=== PATIENT | male | born 1950 | race Caucasian/White ===

== ENCOUNTER 2018-12-11 12:29 | Observation (INO) ==
[2018-12-11] MEDS ORDERED: Aspirin 81 MG TAB.CHEW PO ONE (13:01)
[2018-12-11 13:09] LABS: Basophils # 0.1 K/mcL (0.0-0.2); Basophils % 0.5 %; Eosinophils # 0.1 K/mcL (0.0-0.6); Hematocrit 41.3 % (37.5-50.1); Hemoglobin 13.5 g/dL (12.9-16.9); Immature Granulocytes % 0.5 % (0-4); Lymphocytes # 2.9 K/mcL (0.6-4.6); Lymphocytes % 26.1 %; Mean Corpuscular HGB Conc 32.7 g/dL (31.6-35.5); Mean Corpuscular Hemoglobin 28.7 pg (28.0-33.3); Mean Corpuscular Volume 87.7 fL (83.0-100.0); Mean Platelet Volume 9.1 fL (9.4-12.4); Monocytes # 1.2 K/mcL (0.0-1.3); Monocytes % 10.9 %; Neutrophils # 6.7 K/mcL (1.6-8.9); Platelet Count 325 K/mcL (140-400); Red Blood Count 4.71 M/mcL (4.19-5.50); Red Cell Distribution Width 13.1 % (11.5-14.5)
[2018-12-11 13:21] LABS: BUN/Creatinine Ratio 17 (6-26); Blood Urea Nitrogen 15 mg/dL (8-23); Calcium 9.2 mg/dL (8.6-10.3); Carbon Dioxide 26 mEq/L (23-29); Chloride 106 mEq/L (98-107); Glucose 95 mg/dL (70-105); Osmolality,Calculated 287 (280-300); Potassium 3.7 mEq/L (3.5-5.1); Sodium 138 mEq/L (136-145); Troponin I < 0.03 ng/mL (< 0.04); eGFR For African Americans > 60 (> 60); eGFR For Non-African Americans > 60 (> 60)
[2018-12-11] MEDS: Nitroglycerin 0.4 MG TAB.SUBL SL PRN ×2 (13:29→13:37)
--- NOTE | 2018-12-11 13:53 | Emergency Department Note ---
Disposition Clinical Impression: Chest pain Qualifiers: Chest pain type: precordial pain Qualified Code(s): R07.2 - Precordial pain Disposition: Admitted As Inpatient Condition: Good Time of Disposition: 14:07 Chest Pain HPI - General Chief Complaint: ED Chest Pain Stated Complaint: CP Time Seen by Provider: 12/11/18 12:44 Source: patient Limitations: no limitations Vital Signs Reviewed: Yes Nursing Notes Reviewed: Yes - History of Present Illness HPI Narrative: This is a 68-year-old gentleman with a history of coronary artery disease who presents today with a complaint of substernal chest pain deficit at this morning. Patient describes tightness, radiating to his left arm and jaw. Patient says he has had intermittent pain for the past few days also. Associated symptoms include dyspnea. He denies any fever or chills. He denies any URI symptoms. Denies any recent trauma. His last stress test was many years ago. Symptoms seem to be worse with exertion. Pt complaint: chest pain Duration: intermittent Pain Location: left chest Severity: moderate Severity scale (1-10): 7 Quality: tightness, heaviness Pain Radiation: LUE Worsens with: exertion - Related Data Home Medications Medication Instructions Recorded Confirmed Albuterol Sulfate [Proventil 180 mcg IH Q4HR PRN 06/21/15 12/11/18 Inhaler] Aspirin 81 mg PO DAILY 06/21/15 12/11/18 Atorvastatin Calcium [Lipitor] 80 mg PO HS 06/21/15 12/11/18 Clopidogrel [Plavix] 75 mg PO DAILY 06/21/15 12/11/18 Gabapentin [Neurontin] 400 mg PO BID 06/21/15 12/11/18 Isosorbide MONOnitrate [Isosorbide 60 mg PO DAILY 06/21/15 12/11/18 Mononitrate ER] Metoprolol [Lopressor] 25 mg PO BID 06/21/15 12/11/18 Nitroglycerin [Nitrostat] 0.4 mg SL Q5M PRN 06/21/15 12/11/18 Pantoprazole Sodium [Protonix] 40 mg PO DAILY 06/21/15 12/11/18 Ranitidine HCl [Zantac] 300 mg PO BID 06/21/15 12/11/18 Previous Rx's Medication Instructions Recorded Acetaminophen [Tylenol] 500 mg PO Q6HR PRN #20 tablet 04/25/18 Cetirizine HCl [Zyrtec] 10 mg PO DAILY #4 capsule 06/23/18 Allergies Allergy/AdvReac Type Severity Reaction Status Date / Time No Known Allergies Allergy Verified 06/23/18 09:28 All systems ED: reviewed and negative except as stated. Constitutional: Denies: fever, chills ENT ED: Denies: congestion Cardiovascular: Reports: chest pain. Denies: palpitations, dyspnea on exertion, syncope Respiratory: Reports: dyspnea Gastrointestinal: Denies: abdominal pain, vomiting Musculoskeletal: Denies: back pain, neck pain Chest Pain PMH - Past Medical History Medical history: Reports: coronary artery disease, hyperlipidemia, hypertension, seizures, TIA Surgical history: Reports: angioplasty/stent, cholecystectomy Psychiatric history: Reports: no psych history - Social History Smoking Status: Never smoker Alcohol use: Reports: none Drug use: Reports: none Physical Exam - General Limitations: no limitations General appearance: alert - Head Head exam: atraumatic, normocephalic, normal inspection - Eye Eye exam: Present: normal appearance, PERRL, EOMI - Expanded Eye Exam Pupils: Left: reactive - ENT ENT exam: normal exam, normal oropharynx, mucous membranes moist - Expanded ENT Exam External ear exam: Present: normal external inspection Mouth exam: Present: normal external inspection Teeth exam: Present: normal inspection Throat exam: Present: normal inspection - Neck Neck exam: Present: normal inspection, full ROM, trachea midline - Chest Chest inspection: Present: normal inspection, symmetric chest wall rise - Respiratory Respiratory exam: Present: normal lung sounds bilaterally - Cardiovascular Cardiovascular exam: Present: regular rate, normal rhythm, normal heart sounds - Abdominal Exam Abdominal exam: Present: soft, Non-Tender. Absent: tenderness, distention, guarding, rebound, rigidity - Extremities Exam Extremities exam: Present: normal inspection, full ROM. Absent: tenderness, pedal edema - Expanded Upper Extremity Exam Shoulder exam: Present: normal inspection, full ROM Arm exam: Present: normal inspection, full ROM Elbow exam: Present: normal inspection, full ROM Forearm/Wrist exam: Present: normal inspection, full ROM Hand exam: Present: normal inspection, full ROM Vascular exam: Normal: capillary refill, radial pulse - Expanded Lower Extremity Exam Hip/Pelvis exam: Present: normal inspection, full ROM Upper leg exam: Present: normal inspection, full ROM Knee exam: Present: normal inspection, full ROM Lower leg exam: Present: normal inspection, full ROM Ankle exam: Present: normal inspection, full ROM Foot/toe exam: Present: normal inspection, full ROM Neurovascular/Tendon exam: Absent: motor deficit, sensory deficit, tendon deficit - Back Exam Back exam: Present: normal inspection, full ROM. Absent: tenderness - Neurological Exam Neurological exam: Present: alert, oriented X3 - Expanded Neurological Exam Patient oriented to: Present: person, place, time Coma Scale Eye Opening: Spontaneous Coma Scale Motor Response: Obeys Commands Coma Scale Verbal Response: Oriented Coma Scale Total: 15 - Psychiatric Psychiatric exam: Present: normal affect, normal mood - Skin Skin exam: Present: warm, dry, intact, normal color Course Vital Signs Temperature 97.9 F 12/11/18 12:36 Pulse Rate 79 12/11/18 12:36 Respiratory Rate 12/11/18 12:36 Blood Pressure 141/78 12/11/18 12:36 O2 Sat by Pulse Oximetry 100 12/11/18 12:36 Temperature 97.9 F 12/11/18 12:36 Pulse Rate 62 12/11/18 14:35 Respiratory Rate 12/11/18 14:35 Blood Pressure 123/74 12/11/18 14:35 O2 Sat by Pulse Oximetry 100 12/11/18 14:35 Oxygen Delivery Oxygen Delivery Room Air Chest Pain - MDM Narrative Medical decision making narrative: Differential diagnoses includes acute coronary syndrome versus atypical chest pain. Given this was scheduled risk factor, I will rule out ACS. EKG shows normal sinus rhythm at 80 beats per minute. Normal axis. Normal intervals. No acute injury pattern. 1355 Patient reevaluated. His pain is almost completely resolved with nitroglycerin. Will put NTG paste. 1406 Patient's care discussed with the hospitalist. Will admit. - Lab Data Result diagrams: 12/11/18 12:41 12/11/18 12:41 Lab Results 12/11/18 12/11/18 Range/Units 12:41 12:41 WBC 11.0 (4.3-11.1) K/mcL RBC 4.71 (4.19-5.50) M/mcL Hgb 13.5 (12.9-16.9) g/dL Hct 41.3 (37.5-50.1) % MCV 87.7 (83.0-100.0) fL MCH 28.7 (28.0-33.3) pg MCHC 32.7 (31.6-35.5) g/dL RDW 13.1 (11.5-14.5) % Plt Count 325 (140-400) K/mcL MPV 9.1 L (9.4-12.4) fL Immature Gran % 0.5 (0-4) % Seg Neutrophils % 61.0 % Lymphocytes % 26.1 % Monocytes % 10.9 % Eosinophils % 1.0 % Basophils % 0.5 % Neutrophils # 6.7 (1.6-8.9) K/mcL Lymphocytes # 2.9 (0.6-4.6) K/mcL Monocytes # 1.2 (0.0-1.3) K/mcL Eosinophils # 0.1 (0.0-0.6) K/mcL Basophils # 0.1 (0.0-0.2) K/mcL Sodium 138 (136-145) mEq/L Potassium 3.7 (3.5-5.1) mEq/L Chloride 106 (98-107) mEq/L Carbon Dioxide 26 (23-29) mEq/L BUN 15 (8-23) mg/dL Creatinine 0.87 (0.70-1.30) mg/dL Est GFR ( Amer) > 60 (> 60) Est GFR (Non-Af Amer) > 60 (> 60) BUN/Creatinine Ratio 17 (6-26) Glucose 95 (70-105) mg/dL Calculated Osmolality 287 (280-300) Calcium 9.2 (8.6-10.3) mg/dL Troponin I < 0.03 (< 0.04) ng/mL Heart Score - Score History: Moderately Suspicious EKG: Non Specific repolarisation Disturbance Age: Greater than 65 Risk Factors: Equal/Greater than 3 risk factor or history of atherosclerotic disease Troponin: Less than normal limit HEART Score Total: 6
[2018-12-11] MEDS ORDERED: Nitroglycerin 1 INCH/GM PACKET TP ONE (14:08)
[2018-12-11] MEDS ORDERED: *HR* HYDROcodone/Acet 5/325 mg TABLET PO PRN (15:37)
[2018-12-11] MEDS ORDERED: Naloxone 0.4 MG/ML INJ IVP PRN (15:37)
[2018-12-11] MEDS ORDERED: Ondansetron ODT 4 MG TAB.RAPDIS SL PRN (15:37)
[2018-12-11] MEDS ORDERED: Nitroglycerin 0.4 MG TAB.SUBL SL PRN (15:42)
--- NOTE | 2018-12-11 16:25 | Internal Med History&Physical ---
Date of Encounter: 12/11/18 Time of Encounter: 16:20 Internal Medicine - H&P: HPI Chief complaint: CP Admitted From: Emergency Dept Plans for Post Hospital Care: Home History of present illness: Mr. Kuo is a 68 year old male patient has a past medical history of hypertension hyperlipidemia CAD with 2015 stent placement TIA BP H GERD and COPD non-oxygen dependent. Presented to [facility] ED with complaints of substernal chest pain that occurred this morning while at rest describing as a tightness heaviness 7 out of 10 radiating to his left arm his jaw he did have some light nausea as well as some dyspnea. He states that he has been experiencing intermittent chest pain for the past few days and pain was resolved with rest however this pain did not improve. In the emergency department chest x-ray with nothing acute EKG with no ST-T wave abnormalities initial troponin was negative patient was given nitroglycerin which did relieve his pain and eventually was placed on Nitropaste. He has been admitted for further workup and evaluation currently patient is chest pain-free Past Med Surg Social Fam HX - Past Medical History Medical history: coronary artery disease, hyperlipidemia, hypertension, seizures, TIA Additional medical history: HIATAL HERNIA Psychiatric history: no psych history - Past Surgical History Surgical History: angioplasty/stent, cholecystectomy Additional surgical history: 2 cardiac stents - Social History Smoking Status: Never smoker Smokeless Tobacco Status: No Alcohol use: none Drug use: none - Family History Mother Living Status: Hx Family Cardiac Disorders: Yes Father Living Status: Hx Family Cardiac Disorders: Yes Sister Hx Family Neurologic Disorders: Yes (Seizure) Internal Medicine - H&P: Meds Albuterol Sulfate [Proventil Inhaler] 180 mcg IH Q4HR PRN 06/21/15 [History] Aspirin 81 mg PO DAILY 06/21/15 [History] Atorvastatin Calcium [Lipitor] 80 mg PO HS 06/21/15 [History] Clopidogrel [Plavix] 75 mg PO DAILY 06/21/15 [History] Gabapentin [Neurontin] 400 mg PO BID 06/21/15 [History] Isosorbide MONOnitrate [Isosorbide Mononitrate ER] 60 mg PO DAILY 06/21/15 [History] Metoprolol [Lopressor] 25 mg PO BID 06/21/15 [History] Nitroglycerin [Nitrostat] 0.4 mg SL Q5M PRN 06/21/15 [History] Pantoprazole Sodium [Protonix] 40 mg PO DAILY 06/21/15 [History] Ranitidine HCl [Zantac] 300 mg PO BID 06/21/15 [History] Acetaminophen [Tylenol] 500 mg PO Q6HR PRN #20 tablet 07/21/17 [Rx] Cetirizine HCl [Zyrtec] 10 mg PO DAILY #4 capsule 06/23/18 [Rx] Allergy/AdvReac Type Severity Reaction Status Date / Time No Known Allergies Allergy Verified 06/23/18 09:28 All Systems PM: A 10-system review of systems was performed and is negative for pertinent findings except as documented above in the HPI. - Constitutional Constitutional: no chills, no fever(s), no night sweats - EENT Eyes: no change in vision, no discharge, no pain, no photophobia Ears: no ear discharge, no ear pain, no tinnitus Nose, mouth and throat: no dysphagia, no nasal discharge, no neck pain, no sore throat - Cardiovascular Cardiovascular ROS IM: chest pain - Respiratory Respiratory: no cough, no dyspnea, no wheezing, no excessive phlegm production - Gastrointestinal Gastrointestinal: no abdominal pain, no diarrhea, no hematemesis, no hematochezia, no melena, no nausea, no vomiting - Musculoskeletal Musculoskeletal ROS IM: no numbness, no tingling - Integumentary Integumentary IM: no rash, no unusual bruising - Neurological Neurological ROS: no confusion, no convulsions, no focal weakness, no numbness, no tingling, no tremor(s) - Hematologic/Lymphatic Hematologic/Lymphatic: no easy bruising - Constitutional Vitals: Temp Pulse Resp BP Pulse Ox 98.0 F 61 16 146/79 95 12/11/18 16:15 12/11/18 16:15 12/11/18 16:15 12/11/18 16:15 12/11/18 16:15 General appearance: Present: A&O X 3 Exam: . - Head Head exam: Present: atraumatic, normocephalic - Eye Eye exam: Present: PERRL, conjuntiva pink, sclera anicteric Pupils: Present: PERRL - Neck Neck exam general surgery: Present: supple, trachea midline. Absent: lymphadenopathy - Respiratory Respiratory exam: Present: CTAB. Absent: accessory muscle use, rales, rhonchi, wheezes - Cardiovascular Cardiovascular exam: Present: RRR, +S1, +S2. Absent: diastolic murmur, gallop, rubs, systolic murmur - GI/Abdominal GI/Abdominal exam: Present: normal bowel sounds, soft, no peritoneal signs. Absent: distended, tenderness - Extremities Exam Extremities exam: Present: warm, radial pulses palpable and symmetrical. Absent: calf tenderness, cyanotic, pedal edema - Neurological Exam Neurological exam: Present: CN II-XII intact, oriented X3, no focal deficits. Absent: pronater drift, facial droop, speech deficit - Skin Skin exam: Present: dry, intact Internal Med - H&P Results - Labs CBC & Chem 7: 12/11/18 12:41 12/11/18 12:41 Labs: Short CBC 12/11/18 Range/Units 12:41 WBC 11.0 (4.3-11.1) K/mcL Hgb 13.5 (12.9-16.9) g/dL Hct 41.3 (37.5-50.1) % Plt Count 325 (140-400) K/mcL Neutrophils # 6.7 (1.6-8.9) K/mcL BMP 12/11/18 12:41 Sodium 138 Potassium 3.7 Chloride 106 Carbon Dioxide 26 BUN 15 Creatinine 0.87 Glucose 95 Calcium 9.2 Cardiac Enzymes 12/11/18 Range/Units 12:41 Troponin I < 0.03 (< 0.04) ng/mL - Impressions ITS Impressions Chest X-Ray 12/11/18 13:33 IMPRESSION: No acute process. D/ / Chase Marquez MD / Chase Marquez MD Interpreting Provider: Chase Marquez MD - Diagnostic Studies Chest x-ray Additional comments: Chest X-Ray 12/11/18 13:33 IMPRESSION: No acute process. D/ / Chase Marquez MD / Chase Marquez MD Interpreting Provider: Chase Marquez MD - Assessment and Plan (1) Chest pain Current Visit: Yes Status: Acute Assessment and plan: Presented after experiencing substernal chest pain while at rest which was relieved with nitroglycerin has history of coronary disease with stent placement last stress test 2017 currently chest pain-free with nitroglycerin paste Continue to cycle troponins initial troponin negative Continuous cardiac monitoring Cardiac echo Lipid profile Continued aspirin and statin beta seng Nitroglycerin as needed for chest pain Nothing by mouth after midnight for stress test in a.m. Qualifiers: Chest pain type: unspecified Qualified Code(s): R07.9 - Chest pain, unspecified (2) COPD (chronic obstructive pulmonary disease) Current Visit: No Status: Chronic Assessment and plan: Continue with bronchodilators Qualifiers: COPD type: unspecified COPD Qualified Code(s): J44.9 - Chronic obstructive pulmonary disease, unspecified (3) GERD (gastroesophageal reflux disease) Current Visit: Yes Status: Acute Assessment and plan: PPI Qualifiers: Esophagitis presence: esophagitis presence not specified Qualified Code(s): K21.9 - Gastro-esophageal reflux disease without esophagitis (4) Essential hypertension Current Visit: No Status: Acute (5) CAD (coronary artery disease) Current Visit: No Status: Chronic Assessment and plan: CAD; with last cath 03/2014 showed patent stent to proximal LAD and patency to previous angioplasty of diagonal otherwise nonobstructive CAD - [place] with (3) stents 09/2011, mild diastolic dysfunction with normal EF via RIRI 02/2013 with pharmacologic stress test negative for ischemia, cardiac echo 2015 with EF of 6065% normal LV chamber size wall thickness and function while left ventricle diastolic dysfunction normal Rifater structure and function no evidence poly- hypertension valvular disease cardiac stress test on 2017 - normal perfusion and rest and during stress no EKG changes Continue with aspirin/lab X and statin beta seng and Imdur Nitroglycerin as needed for chest pain Continuous cardiac monitoring Qualifiers: Coronary Disease-Associated Artery/Lesion type: [place] artery [place] vs. transplanted heart: enterprise heart Associated angina: without angina Qualified Code(s): I25.10 - Atherosclerotic heart disease of enterprise coronary artery without angina pectoris - Time Spent With Patient Total time spent is greater than 50% in coordination of care (as documented) at patient's floor/unit and/or counseling patient:
[2018-12-11] MEDS: Famotidine 20 MG TABLET PO SCH (17:04)
[2018-12-11] MEDS: Gabapentin 400 MG CAPSULE PO SCH (20:08)
[2018-12-11] MEDS ORDERED: NON-FORMULARY MEDICATION 1 EACH EACH (Ranitidine Hcl [Zantac] 300 MG) PO SCH (21:00)
[2018-12-12 02:12] LABS: Basophils % 0.3 %; Eosinophils # 0.1 K/mcL (0.0-0.6); Eosinophils % 1.3 %; Hematocrit 40.8 % (37.5-50.1); Hemoglobin 13.3 g/dL (12.9-16.9); Immature Granulocytes % 0.4 % (0-4); Lymphocytes # 2.5 K/mcL (0.6-4.6); Lymphocytes % 24.8 %; Mean Corpuscular HGB Conc 32.6 g/dL (31.6-35.5); Mean Corpuscular Hemoglobin 28.6 pg (28.0-33.3); Mean Corpuscular Volume 87.7 fL (83.0-100.0); Mean Platelet Volume 9.1 fL (9.4-12.4); Monocytes # 0.9 K/mcL (0.0-1.3); Monocytes % 9.1 %; Neutrophils # 6.5 K/mcL (1.6-8.9); Platelet Count 314 K/mcL (140-400); Red Blood Count 4.65 M/mcL (4.19-5.50); Red Cell Distribution Width 13.1 % (11.5-14.5); Segmented Neutrophils % 64.1 %; White Blood Count 10.1 K/mcL (4.3-11.1)
[2018-12-12 02:29] LABS: BUN/Creatinine Ratio 18 (6-26); Blood Urea Nitrogen 15 mg/dL (8-23); Calcium 8.7 mg/dL (8.6-10.3); Carbon Dioxide 26 mEq/L (23-29); Chloride 102 mEq/L (98-107); Chol/HDL Ratio 2.4 (0-4.9); Cholesterol 136 mg/dL (< 200); Glucose 108 mg/dL (70-105); HDL Cholesterol 56 mg/dL (40-59); LDL Cholesterol,Calculated 68 mg/dL (0-99); Osmolality,Calculated 285 (280-300); Sodium 137 mEq/L (136-145); Triglycerides 61 mg/dL (< 150); eGFR For African Americans > 60 (> 60); eGFR For Non-African Americans > 60 (> 60)
[2018-12-12] MEDS ORDERED: Regadenoson 0.4 MG/5 ML SYRINGE IVP ONE (06:31)
--- NOTE | 2018-12-12 08:32 | Internal Med Progress Note ---
Hospitalist Progress Note - Encounter Date of Encounter: 12/12/18 Time of Encounter: 08:01 - Subjective Interval History: Was seen and examined at bedside-he was to undergo a cardiac stress test today however patient did not have his Nitropaste removed overnight he darty was injected-however he will be unable to complete stress test today due to the Nit ropaste. We will continue with workup and attempt stress test in the a.m. Currently denies any chest pain no chest pain overnight. Discussed treatment plan with the patient who verbalizes understanding - Exam Vitals: Temp Pulse Resp BP Pulse Ox 98.3 F 63 16 137/80 96 12/12/18 03:50 12/12/18 03:50 12/12/18 03:50 12/12/18 03:50 12/12/18 03:50 Exam: Skin: Free of rash and discoloration. Eyes: Sclera is white. There is no discharge from eyes. ENMT: Oral/pharyngeal mucosa is normal in appearance. There is no discharge from nose or ears. Respiratory: Normal breath sounds with no crackles and wheezes bilaterally. CV: Heart is regular with no gallop or murmur. GI: Abdomen is flat and soft with no palpable mass or visceromegaly. : There is no tenderness in patient's flanks bilaterally. Neuro exam: He has good strength in upper and lower extremities. He has normal eye movements. Psychiatric: He has normal affect. His thought process is appropriate to the situation. - Assessment and Plan (1) Chest pain Current Visit: Yes Status: Acute Assessment and Plan: Presented after experiencing substernal chest pain while at rest which was relieved with nitroglycerin has history of coronary disease with stent placement last stress test 2016 currently chest pain-free with nitroglycerin paste Continue to cycle troponins initial troponin negative Continuous cardiac monitoring Cardiac echo Lipid profile Continued aspirin and statin beta seng Nitroglycerin as needed for chest pain Nothing by mouth after midnight for stress test in a.m. 12/12 Nitroglycerine patch left on patient overnight he was injected this am able to perform stress test today due to nitroglycerin Troponins are negative Cardiac echo is pending Continued aspirin and statin beta seng Will be nothing by mouth at midnight for stress test in the a.m. (2) COPD (chronic obstructive pulmonary disease) Current Visit: No Status: Chronic Assessment and Plan: Continue with bronchodilators (3) GERD (gastroesophageal reflux disease) Current Visit: Yes Status: Acute Assessment and Plan: PPI (4) Essential hypertension Current Visit: No Status: Acute Assessment and Plan: Continue with home medications (5) CAD (coronary artery disease) Current Visit: No Status: Chronic Assessment and Plan: CAD; with last cath 03/2014 showed patent stent to proximal LAD and patency to previous angioplasty of diagonal otherwise nonobstructive CAD - [place] with (3) stents 09/2011, mild diastolic dysfunction with normal EF via RIRI 02/2013 with pharmacologic stress test negative for ischemia, cardiac echo 2015 with EF of 6065% normal LV chamber size wall thickness and function while left ventricle diastolic dysfunction normal Rifater structure and function no evidence poly- hypertension valvular disease cardiac stress test on 2016 - normal perfusion and rest and during stress no EKG changes Continue with aspirin/lab X and statin beta seng and Imdur Nitroglycerin as needed for chest pain Continuous cardiac monitoring - Time Spent with Patient Total time spent is greater than 50% in coordination of care (as documented) at patient's floor/unit and/or counseling patient: Internal Medicine: Result - Labs CBC & Chem 7: 12/12/18 01:28 12/12/18 01:28 Labs: Short CBC 12/11/18 12/12/18 Range/Units 12:41 01:28 WBC 11.0 10.1 (4.3-11.1) K/mcL Hgb 13.5 13.3 (12.9-16.9) g/dL Hct 41.3 40.8 (37.5-50.1) % Plt Count 325 314 (140-400) K/mcL Neutrophils # 6.7 6.5 (1.6-8.9) K/mcL BMP 12/11/18 12/12/18 12:41 01:28 Sodium 138 137 Potassium 3.7 4.0 Chloride 106 102 Carbon Dioxide 26 26 BUN 15 15 Creatinine 0.87 0.85 Glucose 95 108 H Calcium 9.2 8.7 Cardiac Enzymes 12/11/18 12/11/18 12/11/18 Range/Units 12:41 17:48 23:42 Troponin I < 0.03 < 0.03 < 0.03 (< 0.04) ng/mL - Impressions Impressions Chest X-Ray 12/11/18 13:33 IMPRESSION: No acute process. D/ / Chase Marquez MD / Chase Marquez MD Interpreting Provider: Chase Marquez MD Consult Discharge Plan - Plan Referrals: [facility] [place],Ben Mckeon MD [Primary Care Provider] - (1) Chest pain Qualifiers: Chest pain type: unspecified Qualified Code(s): R07.9 - Chest pain, unspecified (2) COPD (chronic obstructive pulmonary disease) Qualifiers: COPD type: unspecified COPD Qualified Code(s): J44.9 - Chronic obstructive pulmonary disease, unspecified (3) GERD (gastroesophageal reflux disease) Qualifiers: Esophagitis presence: esophagitis presence not specified Qualified Code(s): K21.9 - Gastro-esophageal reflux disease without esophagitis (5) CAD (coronary artery disease) Qualifiers: Coronary Disease-Associated Artery/Lesion type: [place] artery [place] vs. transplanted heart: [place]all heart Associated angina: without angina Qualified Code(s): I25.10 - Atherosclerotic heart disease of [place] coronary artery without angina pectoris
[2018-12-12] MEDS: Loratadine 10 MG TABLET PO SCH (09:00)
[2018-12-12] MEDS: Isosorbide MONOnitrate (24 HR) 60 MG TAB.ER.24H PO SCH (09:00)
[2018-12-12] MEDS: Aspirin 81 MG TAB.CHEW PO SCH (09:00)
[2018-12-12] MEDS: Gabapentin 400 MG CAPSULE PO SCH ×2 (09:00→20:54)
[2018-12-12] MEDS: Famotidine 20 MG TABLET PO SCH ×2 (09:01→18:04)
--- NOTE | 2018-12-12 13:20 | Electrocardiograph Report ---
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
[2018-12-13] MEDS ORDERED: Regadenoson 0.4 MG/5 ML SYRINGE IVP ONE (06:19)
[2018-12-13] MEDS: Famotidine 20 MG TABLET PO SCH (13:23)
[2018-12-13] MEDS: Gabapentin 400 MG CAPSULE PO SCH (13:23)
[2018-12-13] MEDS: Isosorbide MONOnitrate (24 HR) 60 MG TAB.ER.24H PO SCH (13:25)
[2018-12-13] MEDS: Loratadine 10 MG TABLET PO SCH (13:26)
[2018-12-13] MEDS: Aspirin 81 MG TAB.CHEW PO SCH (13:26)
--- NOTE | 2018-12-13 14:26 | Discharge Summary ---
- NOTES TO OUTPATIENT PROVIDER Notes to Outpatient Provider: Reason did undergo cardiac stress test which was negative for any ischemia or infarct-EF of 60% normal left ventricular size and systolic function mild diastolic dysfunction left ventricle-continue with aspirin and statin beta seng follow-up with cardiology Date of Encounter: 12/13/18 Time of Encounter: 14:19 - Discharge Diagnosis (1) Chest pain Priority: Primary Status: Acute Qualifiers: Chest pain type: unspecified Qualified Code(s): R07.9 - Chest pain, unspecified (2) COPD (chronic obstructive pulmonary disease) Priority: Secondary Status: Chronic Qualifiers: COPD type: unspecified COPD Qualified Code(s): J44.9 - Chronic obstructive pulmonary disease, unspecified (3) GERD (gastroesophageal reflux disease) Priority: Secondary Status: Acute Qualifiers: Esophagitis presence: esophagitis presence not specified Qualified Code(s): K21.9 - Gastro-esophageal reflux disease without esophagitis (4) Essential hypertension Priority: Secondary Status: Acute (5) CAD (coronary artery disease) Priority: Secondary Status: Chronic Qualifiers: Coronary Disease-Associated Artery/Lesion type: [place] artery [place] vs. transplanted heart: [place] heart Associated angina: without angina Qualified Code(s): I25.10 - Atherosclerotic heart disease of [place] coronary artery without angina pectoris Hospital course: Mr. Kuo is a 68 year old male past medical history of hypertension hyperlipidemia CAD with 2015 stent placement TIA BP H GERD and COPD non-oxygen dependent. Presented to [facility] with complaints of substernal chest pain that occurred this morning while at rest describing as a tightness heaviness 7 out of 10 radiating to his left arm his jaw he did have some light nausea as well as some dyspnea. He states that he has been experiencing intermittent chest pain for the past few days and pain was resolved with rest however this pain did not improve. She was given nitroglycerin in the ER which did relieve his pain. EKG with no ST-T wave abnormalities and troponins were negative 3 cardiac echo with preserved EF he underwent a cardiac stress test which was negative for any ischemia or infarct there was profusion activity located in the left breast on stress images suggesting the presence of contamination and was recommending dedicated imaging to rule out malignancy. I did review images with Dr. Hunter radiologists who suggests most likely artifact and to follow-up as outpatient. Currently patient is chest pain-free at this time is hemodynamically stable. He will follow-up with his primary care provider as well as cardiology - Time Spent with Patient Total time spent providing and/or coordinating discharge services: - Discharge Medications Prescriptions: Continued Metoprolol [Lopressor] 25 mg PO BID Aspirin 81 mg PO DAILY Clopidogrel [Plavix] 75 mg PO DAILY Atorvastatin Calcium [Lipitor] 80 mg PO HS Ranitidine HCl [Zantac] 300 mg PO BID Pantoprazole Sodium [Protonix] 40 mg PO DAILY Gabapentin [Neurontin] 400 mg PO BID Albuterol Sulfate [Proventil Inhaler] 180 mcg IH Q4HR PRN PRN Reason: Shortness Of Breath Nitroglycerin [Nitrostat] 0.4 mg SL Q5M PRN PRN Reason: Chest Pain Acetaminophen [Tylenol] 500 mg PO Q6HR PRN #20 tablet PRN Reason: Pain Cetirizine HCl [Zyrtec] 10 mg PO DAILY #4 capsule Isosorbide MONOnitrate (24 HR) [Imdur] 60 mg PO DAILY levETIRAcetam [Roweepra] 500 mg PO BID Potassium Chloride [Klor-Con 10] 20 meq PO DAILY Home Medications: Albuterol Sulfate [Proventil Inhaler] 180 mcg IH Q4HR PRN 06/21/15 [History] Aspirin 81 mg PO DAILY 06/21/15 [History] Atorvastatin Calcium [Lipitor] 80 mg PO HS 06/21/15 [History] Clopidogrel [Plavix] 75 mg PO DAILY 06/21/15 [History] Gabapentin [Neurontin] 400 mg PO BID 06/21/15 [History] Metoprolol [Lopressor] 25 mg PO BID 06/21/15 [History] Nitroglycerin [Nitrostat] 0.4 mg SL Q5M PRN 06/21/15 [History] Pantoprazole Sodium [Protonix] 40 mg PO DAILY 06/21/15 [History] Ranitidine HCl [Zantac] 300 mg PO BID 06/21/15 [History] Acetaminophen [Tylenol] 500 mg PO Q6HR PRN #20 tablet 07/21/17 [Rx] Cetirizine HCl [Zyrtec] 10 mg PO DAILY #4 capsule 06/23/18 [Rx] Isosorbide MONOnitrate (24 HR) [Imdur] 60 mg PO DAILY 12/12/18 [History] Potassium Chloride [Klor-Con 10] 20 meq PO DAILY 12/12/18 [History] levETIRAcetam [Roweepra] 500 mg PO BID 12/12/18 [History] Allergies/Adverse Reactions: Allergy/AdvReac Type Severity Reaction Status Date / Time No Known Allergies Allergy Verified 12/12/18 07:53 Date of admission: 12/11/18 14:25 Primary care physician: Ben Chaparro MD Discharging clinician: Smita Sawyer Anticipated date of discharge: 12/13/18 - Constitutional Vitals: Temp Pulse Resp BP Pulse Ox 97.6 F 66 16 130/76 93 12/13/18 11:55 12/13/18 11:55 12/13/18 11:55 12/13/18 11:55 12/13/18 11:55 General appearance: Present: A&O X 3 Exam: Skin: Free of rash and discoloration. Eyes: Sclera is white. There is no discharge from eyes. ENMT: Oral/pharyngeal mucosa is normal in appearance. There is no discharge from nose or ears. Respiratory: Normal breath sounds with no crackles and wheezes bilaterally. CV: Heart is regular with no gallop or murmur. GI: Abdomen is flat and soft with no palpable mass or visceromegaly. : There is no tenderness in patient's flanks bilaterally. Neuro exam: He has good strength in upper and lower extremities. He has normal eye movements. Psychiatric: He has normal affect. His thought process is appropriate to the situation. - Patient Status Disposition: Home, Self-Care Condition: Good Functional capacity at discharge: independent ambulation Overall status at discharge: patient is back to baseline - Discharge Instructions Follow Up With: Ben Chaparro MD [Primary Care Provider] - 12/19/18 10:30 am - Diet and Activity Activity: increase activity as tolerated Diet: advance to your usual diet
[2018-12-13 15:12] VITALS: BP 130/83
== END 2018-12-13 16:32 | disposition home or self-care (01) ==
LOC: 3BNU 12:29 → EMEROOARM 12:29 → 3BNU 15:27
PROVIDERS: ADMIT Internal Medicine; ATTEND Internal Medicine

== ENCOUNTER 2019-06-23 18:24 | Observation (INO) ==
[2019-06-23] MEDS ORDERED: Aspirin 81 MG TAB.CHEW PO STA (18:45)
[2019-06-23 19:18] LABS: Hemoglobin 12.4 g/dL (12.9-16.9); Mean Corpuscular HGB Conc 32.6 g/dL (31.6-35.5); Mean Corpuscular Hemoglobin 29.7 pg (28.0-33.3); Mean Corpuscular Volume 91.1 fL (83.0-100.0); Platelet Count 293 K/mcL (140-400); Red Blood Count 4.17 M/mcL (4.19-5.50); Red Cell Distribution Width 13.1 % (11.5-14.5); White Blood Count 7.9 K/mcL (4.3-11.1)
[2019-06-23 19:38] LABS: BUN/Creatinine Ratio 9 (6-26); Blood Urea Nitrogen 8 mg/dL (8-23); Calcium 9.4 mg/dL (8.6-10.3); Carbon Dioxide 29 mEq/L (23-29); Chloride 103 mEq/L (98-107); Glucose 106 mg/dL (70-105); Osmolality,Calculated 285 (280-300); Potassium 3.7 mEq/L (3.5-5.1); Sodium 138 mEq/L (136-145); Troponin I < 0.03 ng/mL (< 0.04); eGFR For African Americans > 60 (> 60); eGFR For Non-African Americans > 60 (> 60)
[2019-06-23] MEDS ORDERED: Isovue-370 500 ML BOTTLE IVP ONE (19:42)
[2019-06-23] MEDS ORDERED: Ondansetron 4 MG/2 ML VIAL IVP PRN (22:11)
[2019-06-23] MEDS ORDERED: Naloxone 0.4 MG/ML INJ IVP PRN (22:11)
[2019-06-23] MEDS ORDERED: Acetaminophen 325 MG TABLET PO PRN (22:11)
[2019-06-23] MEDS: *HR* HYDROcodone/Acet 5/325 mg TABLET PO SCH (23:13)
[2019-06-23] MEDS: Gabapentin 400 MG CAPSULE PO SCH (23:13)
[2019-06-23] MEDS: Aspirin 81 MG TAB.CHEW PO SCH (23:14)
[2019-06-23] MEDS: Loratadine 10 MG TABLET PO SCH (23:14)
[2019-06-24 05:08] LABS: Basophils # 0.1 K/mcL (0.0-0.2); Basophils % 0.9 %; Eosinophils # 0.6 K/mcL (0.0-0.6); Eosinophils % 8.7 %; Hematocrit 36.3 % (37.5-50.1); Hemoglobin 12.1 g/dL (12.9-16.9); Immature Granulocytes % 0.3 % (0-4); Lymphocytes # 2.8 K/mcL (0.6-4.6); Lymphocytes % 41.3 %; Mean Corpuscular HGB Conc 33.3 g/dL (31.6-35.5); Mean Corpuscular Hemoglobin 29.9 pg (28.0-33.3); Mean Corpuscular Volume 89.6 fL (83.0-100.0); Mean Platelet Volume 9.1 fL (9.4-12.4); Monocytes # 0.6 K/mcL (0.0-1.3); Monocytes % 8.1 %; Neutrophils # 2.7 K/mcL (1.6-8.9); Platelet Count 278 K/mcL (140-400); Prothrombin Time 11.1 Seconds (9.4-12.1); Red Blood Count 4.05 M/mcL (4.19-5.50); Red Cell Distribution Width 12.8 % (11.5-14.5); Segmented Neutrophils % 40.7 %; White Blood Count 6.8 K/mcL (4.3-11.1)
[2019-06-24 05:23] LABS: BUN/Creatinine Ratio 9 (6-26); Blood Urea Nitrogen 8 mg/dL (8-23); Calcium 8.8 mg/dL (8.6-10.3); Carbon Dioxide 26 mEq/L (23-29); Chloride 105 mEq/L (98-107); Chol/HDL Ratio 2.8 (0-4.9); Cholesterol 138 mg/dL (< 200); Glucose 89 mg/dL (70-105); HDL Cholesterol 50 mg/dL (40-59); LDL Cholesterol,Calculated 69 mg/dL (0-99); Magnesium 2.1 mg/dL (1.6-2.6); Osmolality,Calculated 284 (280-300); Phosphorous 3.7 mg/dL (2.7-4.5); Potassium 3.6 mEq/L (3.5-5.1); Sodium 138 mEq/L (136-145); Triglycerides 95 mg/dL (< 150); eGFR For African Americans > 60 (> 60); eGFR For Non-African Americans > 60 (> 60)
[2019-06-24] MEDS: *HR* HYDROcodone/Acet 5/325 mg TABLET PO SCH (05:26)
[2019-06-24 07:06] VITALS: BP 151/88
[2019-06-24] MEDS ORDERED: Famotidine 20 MG TABLET PO SCH (09:00)
[2019-06-24] MEDS ORDERED: Isosorbide MONOnitrate (24 HR) 60 MG TAB.ER.24H PO SCH (09:00)
[2019-06-24] MEDS: Gabapentin 400 MG CAPSULE PO SCH (09:05)
[2019-06-24] MEDS: Aspirin 81 MG TAB.CHEW PO SCH (09:05)
[2019-06-24] MEDS: Loratadine 10 MG TABLET PO SCH (09:09)
[2019-06-24] MEDS ORDERED: Hyoscyamine SL 0.125 MG TAB.SUBL SL SCH (09:15)
== END 2019-06-24 10:04 | disposition home or self-care (01) ==
LOC: EMEROOARM 18:24 → 3BNU 18:24 → SUATTDRO 21:16 → 3BNU 21:35
PROVIDERS: ADMIT Student in an Organized Health Care Education/Training Program; ATTEND Internal Medicine

== ENCOUNTER 2020-02-06 19:58 | Inpatient (IN) ==
[2020-02-06 20:51] LABS: Basophils # 0.1 K/mcL (0.0-0.2); Basophils % 0.7 %; Eosinophils # 0.6 K/mcL (0.0-0.6); Eosinophils % 6.5 %; Hematocrit 41.5 % (37.5-50.1); Hemoglobin 13.3 g/dL (12.9-16.9); Immature Granulocytes % 0.4 % (0-4); Lymphocytes # 3.6 K/mcL (0.6-4.6); Lymphocytes % 37.6 %; Mean Corpuscular Hemoglobin 28.7 pg (28.0-33.3); Mean Corpuscular Volume 89.4 fL (83.0-100.0); Mean Platelet Volume 9.3 fL (9.4-12.4); Monocytes # 0.8 K/mcL (0.0-1.3); Monocytes % 8.5 %; Neutrophils # 4.4 K/mcL (1.6-8.9); Platelet Count 339 K/mcL (140-400); Red Blood Count 4.64 M/mcL (4.19-5.50); Segmented Neutrophils % 46.3 %; White Blood Count 9.5 K/mcL (4.3-11.1)
[2020-02-06 21:08] LABS: Alanine Aminotransferase 29 Units/L (7-52); Albumin 4.4 g/dL (3.5-5.7); Albumin/Globulin Ratio 1.5 (1.1-2.2); Alkaline Phosphatase 90 Units/L (34-104); Aspartate Amino Transferase 21 Units/L (13-39); BUN/Creatinine Ratio 9 (6-26); Bilirubin,Direct 0.1 mg/dL (0.0-0.2); Bilirubin,Indirect 0.3 mg/dL (0.0-1.0); Bilirubin,Total 0.4 mg/dL (0.3-1.0); Blood Urea Nitrogen 8 mg/dL (8-23); Carbon Dioxide 23 mEq/L (23-29); Chloride 106 mEq/L (98-107); Glucose 102 mg/dL (70-105); Osmolality,Calculated 285 (280-300); Potassium 3.6 mEq/L (3.5-5.1); Sodium 138 mEq/L (136-145); Total Protein 7.4 g/dL (6.4-8.9); Troponin I < 0.03 ng/mL (< 0.04); eGFR For African Americans > 60 (> 60); eGFR For Non-African Americans > 60 (> 60)
[2020-02-06] MEDS ORDERED: Naloxone 0.4 MG/ML INJ IVP PRN (22:32)
[2020-02-06] MEDS ORDERED: Ondansetron ODT 4 MG TAB.RAPDIS SL PRN (22:32)
[2020-02-06] MEDS ORDERED: Acetaminophen 325 MG TABLET PO PRN (22:32)
[2020-02-06] MEDS ORDERED: Perflutren Lipid Microsphere 1.3 ML in 0.9 % Sodium Chloride 8.7 ML IVP PRN (22:34)
[2020-02-07 02:53] LABS: Basophils # 0.1 K/mcL (0.0-0.2); Basophils % 0.8 %; Eosinophils # 0.6 K/mcL (0.0-0.6); Eosinophils % 7.9 %; Hemoglobin 12.4 g/dL (12.9-16.9); Immature Granulocytes % 0.3 % (0-4); Lymphocytes # 2.7 K/mcL (0.6-4.6); Lymphocytes % 36.8 %; Mean Corpuscular Hemoglobin 27.8 pg (28.0-33.3); Mean Corpuscular Volume 89.7 fL (83.0-100.0); Mean Platelet Volume 9.2 fL (9.4-12.4); Monocytes # 0.6 K/mcL (0.0-1.3); Monocytes % 7.8 %; Neutrophils # 3.3 K/mcL (1.6-8.9); Platelet Count 299 K/mcL (140-400); Prothrombin Time 11.9 Seconds (9.4-12.1); Red Blood Count 4.46 M/mcL (4.19-5.50); Segmented Neutrophils % 46.4 %; White Blood Count 7.2 K/mcL (4.3-11.1)
[2020-02-07 03:11] LABS: BUN/Creatinine Ratio 8 (6-26); Blood Urea Nitrogen 7 mg/dL (8-23); Calcium 8.4 mg/dL (8.6-10.3); Carbon Dioxide 23 mEq/L (23-29); Chloride 107 mEq/L (98-107); Chol/HDL Ratio 2.5 (0-4.9); Cholesterol 116 mg/dL (< 200); Glucose 104 mg/dL (70-105); HDL Cholesterol 46 mg/dL (40-59); LDL Cholesterol,Calculated 59 mg/dL (< 100); Magnesium 2.1 mg/dL (1.6-2.6); Osmolality,Calculated 284 (280-300); Phosphorous 3.6 mg/dL (2.7-4.5); Potassium 3.6 mEq/L (3.5-5.1); Sodium 138 mEq/L (136-145); Triglycerides 55 mg/dL (< 150); eGFR For African Americans > 60 (> 60); eGFR For Non-African Americans > 60 (> 60)
[2020-02-07 03:25] LABS: Thyroid Stimulating Hormone 2.557 mcIU/mL (0.340-5.600)
[2020-02-07] MEDS ORDERED: Regadenoson 0.4 MG/5 ML SYRINGE IVP ONE (07:20)
[2020-02-07] MEDS ORDERED: Nitroglycerin 0.4 MG TAB.SUBL SL PRN (11:24)
[2020-02-07] MEDS: *HR* Heparin 5,000 UNIT/ML VIAL SQ SCH (18:01)
[2020-02-07] MEDS: Gabapentin 300 MG CAPSULE PO SCH (20:58)
[2020-02-08 02:39] LABS: Basophils # 0.1 K/mcL (0.0-0.2); Basophils % 0.8 %; Eosinophils # 0.6 K/mcL (0.0-0.6); Eosinophils % 7.2 %; Hematocrit 41.9 % (37.5-50.1); Hemoglobin 13.3 g/dL (12.9-16.9); Immature Granulocytes % 0.3 % (0-4); Lymphocytes # 2.8 K/mcL (0.6-4.6); Lymphocytes % 35.7 %; Mean Corpuscular HGB Conc 31.7 g/dL (31.6-35.5); Mean Corpuscular Volume 88.2 fL (83.0-100.0); Mean Platelet Volume 9.1 fL (9.4-12.4); Monocytes # 0.6 K/mcL (0.0-1.3); Neutrophils # 3.7 K/mcL (1.6-8.9); Platelet Count 314 K/mcL (140-400); Red Blood Count 4.75 M/mcL (4.19-5.50); Red Cell Distribution Width 12.9 % (11.5-14.5); White Blood Count 7.8 K/mcL (4.3-11.1)
[2020-02-08 02:52] LABS: BUN/Creatinine Ratio 8 (6-26); Blood Urea Nitrogen 7 mg/dL (8-23); Calcium 8.8 mg/dL (8.6-10.3); Carbon Dioxide 24 mEq/L (23-29); Chloride 105 mEq/L (98-107); Glucose 93 mg/dL (70-105); Magnesium 2.1 mg/dL (1.6-2.6); Osmolality,Calculated 284 (280-300); Phosphorous 3.2 mg/dL (2.7-4.5); Potassium 3.5 mEq/L (3.5-5.1); Sodium 138 mEq/L (136-145); eGFR For African Americans > 60 (> 60); eGFR For Non-African Americans > 60 (> 60)
[2020-02-08] MEDS: *HR* Heparin 5,000 UNIT/ML VIAL SQ SCH (06:57)
[2020-02-08] MEDS ORDERED: Heparin 1,000 UNITS/500 mL 500 ML ONE (07:24)
[2020-02-08] MEDS ORDERED: ISOVUE-370 200 ML INFUS..BTL ONE (07:24)
[2020-02-08] MEDS ORDERED: *HR* Heparin 10,000 UNIT/10 ML VIAL ONE (07:24)
[2020-02-08] MEDS ORDERED: 0.9 % Sodium Chloride 1,000 ML ONE ×2 (07:24→08:05)
[2020-02-08] MEDS ORDERED: Nitroglycerin 1,000 MCG/10 ML VIAL IV ONE (07:24)
[2020-02-08] MEDS: Gabapentin 300 MG CAPSULE PO SCH (07:35)
[2020-02-08] MEDS ORDERED: *HR* Midazolam HCl 2 MG/2 ML VIAL ONE (08:04)
[2020-02-08] MEDS ORDERED: *HR* FentaNYL (PF) 100 MCG/2 ML VIAL ONE (08:05)
[2020-02-08] MEDS ORDERED: Isosorbide MONOnitrate (24 HR) 30 MG TAB.ER.24H PO SCH (09:00)
[2020-02-08] MEDS ORDERED: Aspirin 81 MG TAB.CHEW PO SCH (09:00)
[2020-02-08] MEDS ORDERED: 0.9 % Sodium Chloride 1,000 ML IVC SCH (09:30)
[2020-02-08 10:43] VITALS: BP 160/95
[2020-02-08] MEDS ORDERED: FLU Vac QV 20-21 (6Month+)/PF 0.5 ML SYRINGE IM ONE (13:35)
== END 2020-02-08 14:30 | disposition home or self-care (01) | DRG 287 ==
LOC: EMEROOARM 19:58 → 3NENU 19:58 → SUATTDRO 02-07 15:51
PROVIDERS: ADMIT Family Medicine; ATTEND Internal Medicine

== ENCOUNTER 2020-10-18 14:43 | Observation (INO) ==
[2020-10-18 15:48] LABS: Basophils # 0.1 K/mcL (0.0-0.2); Basophils % 0.6 %; Eosinophils # 0.5 K/mcL (0.0-0.6); Eosinophils % 5.3 %; Hemoglobin 13.3 g/dL (12.9-16.9); Immature Granulocytes % 0.2 % (0-4); Lymphocytes % 30.6 %; Mean Corpuscular HGB Conc 32.4 g/dL (31.6-35.5); Mean Corpuscular Volume 89.3 fL (83.0-100.0); Mean Platelet Volume 9.1 fL (9.4-12.4); Monocytes # 0.8 K/mcL (0.0-1.3); Monocytes % 8.1 %; Neutrophils # 5.4 K/mcL (1.6-8.9); Platelet Count 291 K/mcL (140-400); Red Blood Count 4.59 M/mcL (4.19-5.50); Red Cell Distribution Width 13.2 % (11.5-14.5); Segmented Neutrophils % 55.2 %; White Blood Count 9.7 K/mcL (4.3-11.1)
[2020-10-18 16:09] LABS: BUN/Creatinine Ratio 6 (6-26); Blood Urea Nitrogen 5 mg/dL (8-23); Carbon Dioxide 26 mEq/L (23-29); Chloride 104 mEq/L (98-107); Glucose 108 mg/dL (70-105); Osmolality,Calculated 286 (280-300); Potassium 3.4 mEq/L (3.5-5.1); Sodium 139 mEq/L (136-145); Troponin I < 0.03 ng/mL (< 0.04); eGFR For African Americans > 60 (> 60); eGFR For Non-African Americans > 60 (> 60)
[2020-10-18] MEDS ORDERED: Naloxone 0.4 MG/ML INJ IVP PRN (18:04)
[2020-10-18] MEDS ORDERED: Ondansetron ODT 4 MG TAB.RAPDIS SL PRN (18:04)
[2020-10-18] MEDS ORDERED: Melatonin 3 MG TABLET PO PRN (18:04)
[2020-10-18] MEDS ORDERED: Isovue-370 500 ML BOTTLE IVP ONE (18:07)
[2020-10-18] MEDS ORDERED: Nitroglycerin 0.4 MG TAB.SUBL SL PRN (18:22)
[2020-10-18] MEDS: Budesonide/Formoterol 80/4.5 1 PUFF INH IH SCH (19:58)
[2020-10-18] MEDS: cephALEXin 500 MG CAPSULE PO SCH (20:50)
[2020-10-18] MEDS: Gabapentin 300 MG CAPSULE PO SCH (20:51)
[2020-10-19 01:48] LABS: Basophils # 0.1 K/mcL (0.0-0.2); Basophils % 0.6 %; Eosinophils # 0.4 K/mcL (0.0-0.6); Eosinophils % 5.1 %; Hematocrit 37.1 % (37.5-50.1); Hemoglobin 12.3 g/dL (12.9-16.9); Immature Granulocytes % 0.2 % (0-4); Lymphocytes # 2.4 K/mcL (0.6-4.6); Lymphocytes % 27.2 %; Mean Corpuscular HGB Conc 33.2 g/dL (31.6-35.5); Mean Corpuscular Hemoglobin 29.2 pg (28.0-33.3); Mean Corpuscular Volume 88.1 fL (83.0-100.0); Mean Platelet Volume 9.1 fL (9.4-12.4); Monocytes # 0.8 K/mcL (0.0-1.3); Monocytes % 8.7 %; Neutrophils # 5.1 K/mcL (1.6-8.9); Platelet Count 279 K/mcL (140-400); Red Blood Count 4.21 M/mcL (4.19-5.50); Red Cell Distribution Width 13.2 % (11.5-14.5); Segmented Neutrophils % 58.2 %; White Blood Count 8.7 K/mcL (4.3-11.1)
[2020-10-19 02:04] LABS: Alanine Aminotransferase 31 Units/L (7-52); Albumin 3.7 g/dL (3.5-5.7); Albumin/Globulin Ratio 1.4 (1.1-2.2); Alkaline Phosphatase 96 Units/L (34-104); Aspartate Amino Transferase 20 Units/L (13-39); BUN/Creatinine Ratio 7 (6-26); Bilirubin,Total 0.5 mg/dL (0.3-1.0); Blood Urea Nitrogen 6 mg/dL (8-23); Calcium 8.5 mg/dL (8.6-10.3); Carbon Dioxide 25 mEq/L (23-29); Chloride 106 mEq/L (98-107); Globulin 2.6 g/dL (2.4-3.5); Glucose 77 mg/dL (70-105); Magnesium 2.2 mg/dL (1.6-2.6); Osmolality,Calculated 282 (280-300); Phosphorous 3.6 mg/dL (2.7-4.5); Potassium 3.6 mEq/L (3.5-5.1); Sodium 138 mEq/L (136-145); Total Protein 6.3 g/dL (6.4-8.9); Troponin I < 0.03 ng/mL (< 0.04); eGFR For African Americans > 60 (> 60); eGFR For Non-African Americans > 60 (> 60)
[2020-10-19] MEDS: Budesonide/Formoterol 80/4.5 1 PUFF INH IH SCH (07:41)
[2020-10-19 07:45] VITALS: O2SAT 96
[2020-10-19] MEDS: Gabapentin 300 MG CAPSULE PO SCH (08:43)
[2020-10-19] MEDS: cephALEXin 500 MG CAPSULE PO SCH (08:43)
[2020-10-19] MEDS ORDERED: Isosorbide MONOnitrate (24 HR) 30 MG TAB.ER.24H PO SCH (09:00)
[2020-10-19] MEDS ORDERED: Isosorbide MONOnitrate (24 HR) 60 MG TAB.ER.24H PO SCH (09:00)
[2020-10-19] MEDS ORDERED: Loratadine 10 MG TABLET PO SCH (09:00)
[2020-10-19] MEDS ORDERED: Apixaban 5 MG TABLET PO SCH (09:45)
[2020-10-19 10:46] VITALS: BP 112/65; PULSE 65; TEMP 97.7
== END 2020-10-19 11:22 | disposition home or self-care (01) ==
LOC: EMEROOARM 14:43 → 3BNU 14:43 → SUATTDRO 16:45 → 3BNU 17:44
PROVIDERS: ADMIT Internal Medicine; ATTEND Internal Medicine

== ENCOUNTER 2021-02-28 09:13 | Inpatient (IN) ==
[2021-02-28] MEDS ORDERED: Isovue-370 500 ML BOTTLE IVP ONE (09:31)
[2021-02-28 09:56] LABS: Basophils # 0.1 K/mcL (0.0-0.2); Basophils % 0.6 %; Eosinophils # 0.4 K/mcL (0.0-0.6); Eosinophils % 4.8 %; Hematocrit 39.6 % (37.5-50.1); Hemoglobin 13.3 g/dL (12.9-16.9); Immature Granulocytes % 0.3 % (0-4); Lymphocytes # 2.4 K/mcL (0.6-4.6); Lymphocytes % 31.1 %; Mean Corpuscular HGB Conc 33.6 g/dL (31.6-35.5); Mean Corpuscular Hemoglobin 29.8 pg (28.0-33.3); Mean Corpuscular Volume 88.8 fL (83.0-100.0); Monocytes # 0.6 K/mcL (0.0-1.3); Monocytes % 7.2 %; Neutrophils # 4.4 K/mcL (1.6-8.9); Platelet Count 314 K/mcL (140-400); Red Blood Count 4.46 M/mcL (4.19-5.50); Red Cell Distribution Width 13.1 % (11.5-14.5); White Blood Count 7.8 K/mcL (4.3-11.1)
[2021-02-28 10:10] LABS: BUN/Creatinine Ratio 9 (6-26); Blood Urea Nitrogen 8 mg/dL (8-23); Calcium 8.8 mg/dL (8.6-10.3); Carbon Dioxide 25 mEq/L (23-29); Chloride 105 mEq/L (98-107); Glucose 105 mg/dL (70-105); Osmolality,Calculated 281 (280-300); Potassium 4.1 mEq/L (3.5-5.1); Sodium 136 mEq/L (136-145); eGFR For African Americans > 60 (> 60); eGFR For Non-African Americans > 60 (> 60)
[2021-02-28] MEDS ORDERED: *HR* Propofol 200 MG/20 ML VIAL IVP ONE (11:30)
[2021-02-28] MEDS ORDERED: *HR* Midazolam HCl 5 MG/5 ML VIAL IVP ONE (11:30)
[2021-02-28] MEDS ORDERED: *HR* Succinylcholine 200 MG/10 ML VIAL IVP ONE (11:30)
[2021-02-28] MEDS ORDERED: *HR* Water for inj. (sterile) Vial 10 ML IV ONE (11:30)
[2021-02-28 13:55] LABS: INR 1.2; Prothrombin Time 13.2 Seconds (9.4-12.1)
[2021-02-28] MEDS ORDERED: methylPREDNISolone 125 MG/2 ML VIAL IVP ONE (15:01)
[2021-02-28] MEDS ORDERED: Famotidine 20 MG/2 ML VIAL IVP ONE (15:01)
[2021-02-28] MEDS: Midazolam HCl 50 MG/100 ML IV.SOLN IVC SCH ×2 (15:56→19:59)
[2021-02-28] MEDS: FentaNYL (PF) 1,000 MCG/100 ML IV.SOLN IVC SCH ×2 (15:59→23:13)
[2021-02-28] MEDS ORDERED: Naloxone 0.4 MG/ML INJ IVP PRN (17:30)
[2021-02-28] MEDS ORDERED: Artificial Tears SOLN 15 ML BOTTLE BOTH EYES PRN (17:30)
[2021-02-28 18:35] LABS: ABG Base Excess 1 mEq/L (-2 to 3); ABG HCO3 26 mEq/L (21-27); ABG Oxygen Saturation 98 % (95-98); ABG PCO2 41 mmHg (35-45); ABG PO2 99 mmHg (85-104); ABG TCO2 27 mEq/L (20-26); Blood Gas VT 450 cc
[2021-02-28] MEDS: Famotidine 20 MG/2 ML VIAL IVP SCH (18:42)
[2021-02-28] MEDS: Artificial Tears SOLN 15 ML BOTTLE BOTH EYES SCH ×2 (18:43→23:13)
[2021-02-28] MEDS: Budesonide/Formoterol 160/4.5 1 PUFF INH IH SCH (19:33)
[2021-02-28 19:54] LABS: Influenza A PCR Negative (Negative); Influenza B PCR Negative (Negative); Resp. Syncytial Virus PCR Negative (Negative)
[2021-02-28 19:57] LABS: SARS-CoV-2 by PCR (In House) Negative (Negative)
[2021-02-28] MEDS: Chlorhexidine Rinse 15 ML MOUTHWASH MM SCH (19:58)
[2021-02-28] MEDS: Piperacillin/Tazobactam 3.375 GM in 0.9 % Sodium Chloride Mini Bag 100 ML IVPB SCH (23:12)
[2021-02-28] MEDS: *HR* Heparin 5,000 UNIT/ML VIAL SQ SCH (23:13)
[2021-03-01] LABS: Bilirubin,Urine Negative (Negative); Blood,Urine Negative (Negative); Clarity,Urine Ex.Turbid (Clear); Color,Urine Yellow (Yellow); Glucose,Urine (UA) Normal (Normal); Ketones,Urine Negative (Negative); Leukocyte Esterase,Urine Negative (Negative); Nitrite,Urine Negative (Negative); PH,Urine 5.5 pH Units (5.0-8.0); Protein,Urine Trace mg/dL (Neg-Trace); Specific Gravity,Urine > 1.030 (1.010-1.025); Urobilinogen,Urine Normal (Normal)
[2021-03-01 00:02] LABS: Amorphous Sediment,Urine Many per hpf (None-Few); Bacteria,Urine Few per hpf (None-Few); Squamous Epithelial Cell,Urine None Seen per hpf (None-Few); WBC,Urine 0-3 per hpf (0-3)
[2021-03-01] MEDS: Artificial Tears SOLN 15 ML BOTTLE BOTH EYES SCH ×6 (03:45→23:01)
[2021-03-01 03:57] LABS: ABG Base Excess -1 mEq/L (-2 to 3); ABG HCO3 24 mEq/L (21-27); ABG Oxygen Saturation 95 % (95-98); ABG PCO2 40 mmHg (35-45); ABG PH 7.38 pH Units (7.32-7.45); ABG PO2 75 mmHg (85-104); ABG TCO2 25 mEq/L (20-26); Blood Gas VT 450 cc
[2021-03-01] MEDS: 0.9 % Sodium Chloride 1,000 ML IVC SCH ×3 (04:21→23:01)
[2021-03-01] MEDS: Famotidine 20 MG/2 ML VIAL IVP SCH ×2 (05:29→17:17)
[2021-03-01 05:47] LABS: Basophils % 0.1 %; Hematocrit 37.3 % (37.5-50.1); Hemoglobin 11.9 g/dL (12.9-16.9); Immature Granulocytes % 0.2 % (0-4); Lymphocytes # 0.8 K/mcL (0.6-4.6); Lymphocytes % 9.4 %; Mean Corpuscular HGB Conc 31.9 g/dL (31.6-35.5); Mean Corpuscular Hemoglobin 28.4 pg (28.0-33.3); Mean Platelet Volume 9.3 fL (9.4-12.4); Monocytes # 0.1 K/mcL (0.0-1.3); Neutrophils # 7.8 K/mcL (1.6-8.9); Platelet Count 330 K/mcL (140-400); Red Blood Count 4.19 M/mcL (4.19-5.50); Red Cell Distribution Width 13.2 % (11.5-14.5); Segmented Neutrophils % 89.3 %; White Blood Count 8.7 K/mcL (4.3-11.1)
[2021-03-01 06:39] LABS: Alanine Aminotransferase 25 Units/L (7-52); Albumin 3.6 g/dL (3.5-5.7); Albumin/Globulin Ratio 1.3 (1.1-2.2); Alkaline Phosphatase 85 Units/L (34-104); Aspartate Amino Transferase 17 Units/L (13-39); BUN/Creatinine Ratio 11 (6-26); Bilirubin,Direct 0.1 mg/dL (0.0-0.2); Bilirubin,Indirect 0.4 mg/dL (0.0-1.0); Bilirubin,Total 0.5 mg/dL (0.3-1.0); Blood Urea Nitrogen 13 mg/dL (8-23); Calcium 8.4 mg/dL (8.6-10.3); Carbon Dioxide 21 mEq/L (23-29); Chloride 105 mEq/L (98-107); Globulin 2.8 g/dL (2.4-3.5); Glucose 135 mg/dL (70-105); Magnesium 1.9 mg/dL (1.6-2.6); Osmolality,Calculated 284 (280-300); Phosphorous 3.4 mg/dL (2.7-4.5); Potassium 4.3 mEq/L (3.5-5.1); Sodium 136 mEq/L (136-145); Total Protein 6.4 g/dL (6.4-8.9); eGFR For African Americans > 60 (> 60); eGFR For Non-African Americans > 60 (> 60)
[2021-03-01] MEDS: Piperacillin/Tazobactam 3.375 GM in 0.9 % Sodium Chloride Mini Bag 100 ML IVPB SCH ×3 (07:38→23:02)
[2021-03-01] MEDS: *HR* Heparin 5,000 UNIT/ML VIAL SQ SCH ×3 (07:39→23:02)
[2021-03-01] MEDS: Chlorhexidine Rinse 15 ML MOUTHWASH MM SCH ×2 (07:42→19:16)
[2021-03-01] MEDS: Budesonide/Formoterol 160/4.5 1 PUFF INH IH SCH ×2 (09:41→20:50)
[2021-03-01] MEDS: FentaNYL (PF) 1,000 MCG/100 ML IV.SOLN IVC SCH ×2 (10:18→19:21)
[2021-03-02] MEDS: FentaNYL (PF) 1,000 MCG/100 ML IV.SOLN IVC SCH ×3 (03:17→20:19)
[2021-03-02] MEDS: Artificial Tears SOLN 15 ML BOTTLE BOTH EYES SCH ×6 (03:18→23:12)
[2021-03-02 04:03] LABS: Basophils % 0.1 %; Hematocrit 36.6 % (37.5-50.1); Hemoglobin 11.8 g/dL (12.9-16.9); Immature Granulocytes % 0.6 % (0-4); Lymphocytes # 0.8 K/mcL (0.6-4.6); Mean Corpuscular HGB Conc 32.2 g/dL (31.6-35.5); Mean Corpuscular Hemoglobin 29.2 pg (28.0-33.3); Mean Corpuscular Volume 90.6 fL (83.0-100.0); Mean Platelet Volume 9.7 fL (9.4-12.4); Monocytes # 0.7 K/mcL (0.0-1.3); Monocytes % 4.5 %; Neutrophils # 14.1 K/mcL (1.6-8.9); Platelet Count 309 K/mcL (140-400); Red Blood Count 4.04 M/mcL (4.19-5.50); Red Cell Distribution Width 13.4 % (11.5-14.5); Segmented Neutrophils % 89.8 %
[2021-03-02 04:12] LABS: White Blood Count 15.7 K/mcL (4.3-11.1)
[2021-03-02 04:18] LABS: ABG Base Excess -3 mEq/L (-2 to 3); ABG HCO3 23 mEq/L (21-27); ABG Oxygen Saturation 96 % (95-98); ABG PCO2 43 mmHg (35-45); ABG PH 7.34 pH Units (7.32-7.45); ABG PO2 85 mmHg (85-104); ABG TCO2 24 mEq/L (20-26); Blood Gas Modality ASSIST CONTROL; Blood Gas VT 450 cc
[2021-03-02 04:21] LABS: Alanine Aminotransferase 21 Units/L (7-52); Albumin 3.4 g/dL (3.5-5.7); Albumin/Globulin Ratio 1.3 (1.1-2.2); Alkaline Phosphatase 73 Units/L (34-104); Aspartate Amino Transferase 17 Units/L (13-39); BUN/Creatinine Ratio 15 (6-26); Bilirubin,Direct 0.1 mg/dL (0.0-0.2); Bilirubin,Indirect 0.2 mg/dL (0.0-1.0); Bilirubin,Total 0.3 mg/dL (0.3-1.0); Blood Urea Nitrogen 17 mg/dL (8-23); Carbon Dioxide 22 mEq/L (23-29); Chloride 109 mEq/L (98-107); Globulin 2.7 g/dL (2.4-3.5); Glucose 150 mg/dL (70-105); Magnesium 2.1 mg/dL (1.6-2.6); Osmolality,Calculated 294 (280-300); Phosphorous 4.1 mg/dL (2.7-4.5); Potassium 3.8 mEq/L (3.5-5.1); Sodium 140 mEq/L (136-145); Total Protein 6.1 g/dL (6.4-8.9); eGFR For African Americans > 60 (> 60); eGFR For Non-African Americans > 60 (> 60)
[2021-03-02] MEDS: Famotidine 20 MG/2 ML VIAL IVP SCH ×2 (05:01→17:12)
[2021-03-02] MEDS: Piperacillin/Tazobactam 3.375 GM in 0.9 % Sodium Chloride Mini Bag 100 ML IVPB SCH ×3 (07:30→23:11)
[2021-03-02] MEDS: *HR* Heparin 5,000 UNIT/ML VIAL SQ SCH ×3 (07:31→23:12)
[2021-03-02] MEDS: Chlorhexidine Rinse 15 ML MOUTHWASH MM SCH ×2 (07:35→20:03)
[2021-03-02] MEDS: Budesonide/Formoterol 160/4.5 1 PUFF INH IH SCH ×2 (07:36→19:47)
[2021-03-02] MEDS: 0.9 % Sodium Chloride 1,000 ML IVC SCH ×3 (09:43→22:27)
[2021-03-02] MEDS: Midazolam HCl 50 MG/100 ML IV.SOLN IVC SCH (15:55)
[2021-03-02] MEDS ORDERED: *HR* LORazepam 2 MG/ML VIAL IVP STA (17:17)
[2021-03-02] MEDS ORDERED: *HR* LORazepam 2 MG/ML VIAL ONE (17:18)
[2021-03-02] MEDS ORDERED: levETIRAcetam 1,000 MG in 0.9 % Sodium Chloride 100 ML IVPB ONE (17:23)
[2021-03-03] MEDS: FentaNYL (PF) 1,000 MCG/100 ML IV.SOLN IVC SCH ×2 (02:21→09:21)
[2021-03-03] MEDS: Artificial Tears SOLN 15 ML BOTTLE BOTH EYES SCH ×6 (03:09→23:18)
[2021-03-03 03:50] LABS: Basophils % 0.1 %; Immature Granulocytes % 0.9 % (0-4); Lymphocytes # 0.6 K/mcL (0.6-4.6); Lymphocytes % 4.4 %; Mean Corpuscular HGB Conc 30.8 g/dL (31.6-35.5); Mean Corpuscular Hemoglobin 28.2 pg (28.0-33.3); Mean Corpuscular Volume 91.5 fL (83.0-100.0); Mean Platelet Volume 9.8 fL (9.4-12.4); Monocytes # 0.7 K/mcL (0.0-1.3); Monocytes % 5.1 %; Neutrophils # 11.8 K/mcL (1.6-8.9); Platelet Count 322 K/mcL (140-400); Red Blood Count 4.26 M/mcL (4.19-5.50); Red Cell Distribution Width 13.4 % (11.5-14.5); Segmented Neutrophils % 89.5 %; White Blood Count 13.2 K/mcL (4.3-11.1)
[2021-03-03 04:12] LABS: Alanine Aminotransferase 20 Units/L (7-52); Albumin 3.2 g/dL (3.5-5.7); Albumin/Globulin Ratio 1.1 (1.1-2.2); Alkaline Phosphatase 75 Units/L (34-104); Aspartate Amino Transferase 18 Units/L (13-39); BUN/Creatinine Ratio 16 (6-26); Bilirubin,Indirect 0.3 mg/dL (0.0-1.0); Bilirubin,Total 0.3 mg/dL (0.3-1.0); Blood Urea Nitrogen 15 mg/dL (8-23); Carbon Dioxide 24 mEq/L (23-29); Chloride 109 mEq/L (98-107); Globulin 2.9 g/dL (2.4-3.5); Glucose 151 mg/dL (70-105); Magnesium 2.3 mg/dL (1.6-2.6); Osmolality,Calculated 294 (280-300); Phosphorous 3.2 mg/dL (2.7-4.5); Potassium 4.1 mEq/L (3.5-5.1); Sodium 140 mEq/L (136-145); Total Protein 6.1 g/dL (6.4-8.9); eGFR For African Americans > 60 (> 60); eGFR For Non-African Americans > 60 (> 60)
[2021-03-03 04:16] LABS: ABG Base Excess -1 mEq/L (-2 to 3); ABG HCO3 23 mEq/L (21-27); ABG Oxygen Saturation 97 % (95-98); ABG PCO2 36 mmHg (35-45); ABG PH 7.42 pH Units (7.32-7.45); ABG PO2 84 mmHg (85-104); ABG TCO2 24 mEq/L (20-26); Blood Gas VT 450 cc
[2021-03-03] MEDS: Famotidine 20 MG/2 ML VIAL IVP SCH ×2 (05:05→16:52)
[2021-03-03] MEDS: Budesonide/Formoterol 160/4.5 1 PUFF INH IH SCH ×2 (07:43→20:05)
[2021-03-03] MEDS: *HR* Heparin 5,000 UNIT/ML VIAL SQ SCH ×3 (08:28→23:14)
[2021-03-03] MEDS: Piperacillin/Tazobactam 3.375 GM in 0.9 % Sodium Chloride Mini Bag 100 ML IVPB SCH ×3 (08:32→23:16)
[2021-03-03] MEDS: Chlorhexidine Rinse 15 ML MOUTHWASH MM SCH ×2 (08:36→20:18)
[2021-03-03] MEDS: 0.9 % Sodium Chloride 1,000 ML IVC SCH (12:30)
[2021-03-03] MEDS: Midazolam HCl 50 MG/100 ML IV.SOLN IVC SCH (15:21)
[2021-03-03] MEDS ORDERED: Racepinephrine Neb 0.5 ML VIAL IH PRN (17:11)
[2021-03-03] MEDS ORDERED: Furosemide 40 MG/4 ML VIAL IVP ONE (18:34)
[2021-03-03] MEDS ORDERED: Furosemide 40 MG/4 ML VIAL ONE (18:35)
[2021-03-04] MEDS: Artificial Tears SOLN 15 ML BOTTLE BOTH EYES SCH ×2 (04:00→08:58)
[2021-03-04 05:28] LABS: Basophils % 0.1 %; Hemoglobin 13.3 g/dL (12.9-16.9); Immature Granulocytes % 1.1 % (0-4); Lymphocytes % 6.9 %; Mean Corpuscular HGB Conc 31.7 g/dL (31.6-35.5); Mean Corpuscular Hemoglobin 28.8 pg (28.0-33.3); Mean Corpuscular Volume 90.9 fL (83.0-100.0); Mean Platelet Volume 9.5 fL (9.4-12.4); Monocytes # 1.2 K/mcL (0.0-1.3); Monocytes % 8.8 %; Neutrophils # 11.7 K/mcL (1.6-8.9); Platelet Count 337 K/mcL (140-400); Red Blood Count 4.62 M/mcL (4.19-5.50); Red Cell Distribution Width 13.5 % (11.5-14.5); Segmented Neutrophils % 83.1 %; White Blood Count 14.1 K/mcL (4.3-11.1)
[2021-03-04 05:40] LABS: BUN/Creatinine Ratio 18 (6-26); Blood Urea Nitrogen 17 mg/dL (8-23); Calcium 8.5 mg/dL (8.6-10.3); Carbon Dioxide 27 mEq/L (23-29); Chloride 104 mEq/L (98-107); Glucose 145 mg/dL (70-105); Magnesium 2.2 mg/dL (1.6-2.6); Osmolality,Calculated 296 (280-300); Phosphorous 2.4 mg/dL (2.7-4.5); Potassium 3.1 mEq/L (3.5-5.1); Sodium 141 mEq/L (136-145); eGFR For African Americans > 60 (> 60); eGFR For Non-African Americans > 60 (> 60)
[2021-03-04] MEDS: Famotidine 20 MG/2 ML VIAL IVP SCH (06:06)
[2021-03-04] MEDS ORDERED: Potassium Phosphate 44 MEQ in 0.9 % Sodium Chloride 250 ML IVPB ONE (06:33)
[2021-03-04] MEDS: Budesonide/Formoterol 160/4.5 1 PUFF INH IH SCH ×2 (07:23→21:11)
[2021-03-04] MEDS: Chlorhexidine Rinse 15 ML MOUTHWASH MM SCH (08:25)
[2021-03-04] MEDS: Piperacillin/Tazobactam 3.375 GM in 0.9 % Sodium Chloride Mini Bag 100 ML IVPB SCH (08:26)
[2021-03-04] MEDS: *HR* Heparin 5,000 UNIT/ML VIAL SQ SCH (08:26)
[2021-03-04] MEDS ORDERED: Furosemide 40 MG/4 ML VIAL IVP ONE ×2 (09:31→11:12)
[2021-03-04] MEDS ORDERED: FentaNYL (PF) 1,000 MCG/100 ML IV.SOLN IVC SCH (11:12)
[2021-03-04] MEDS ORDERED: Naloxone 0.4 MG/ML INJ IVP PRN (11:12)
[2021-03-04] MEDS ORDERED: Artificial Tears SOLN 15 ML BOTTLE BOTH EYES PRN (11:12)
[2021-03-04] MEDS ORDERED: Racepinephrine Neb 0.5 ML VIAL IH PRN (11:12)
[2021-03-04] MEDS ORDERED: Artificial Tears SOLN 15 ML BOTTLE BOTH EYES SCH (12:00)
[2021-03-04] MEDS ORDERED: *HR* Heparin 5,000 UNIT/ML VIAL SQ SCH (16:00)
[2021-03-04] MEDS ORDERED: Famotidine 20 MG/2 ML VIAL IVP SCH (18:00)
[2021-03-04] MEDS: Famotidine 20 MG TABLET PO SCH (19:55)
[2021-03-04] MEDS: Apixaban 5 MG TABLET PO SCH (19:55)
[2021-03-04] MEDS ORDERED: Chlorhexidine Rinse 15 ML MOUTHWASH MM SCH (21:00)
[2021-03-05 05:06] LABS: Basophils % 0.1 %; Hemoglobin 13.4 g/dL (12.9-16.9); Immature Granulocytes % 0.6 % (0-4); Lymphocytes # 2.7 K/mcL (0.6-4.6); Lymphocytes % 19.5 %; Mean Corpuscular HGB Conc 33.5 g/dL (31.6-35.5); Mean Corpuscular Volume 86.6 fL (83.0-100.0); Mean Platelet Volume 9.2 fL (9.4-12.4); Monocytes # 1.9 K/mcL (0.0-1.3); Monocytes % 13.6 %; Neutrophils # 9.2 K/mcL (1.6-8.9); Nucleated Red Blood Cells 0.1 /100 WBC (0); Platelet Count 323 K/mcL (140-400); Red Blood Count 4.62 M/mcL (4.19-5.50); Red Cell Distribution Width 13.4 % (11.5-14.5); Segmented Neutrophils % 66.2 %; White Blood Count 13.9 K/mcL (4.3-11.1)
[2021-03-05 05:24] LABS: BUN/Creatinine Ratio 20 (6-26); Blood Urea Nitrogen 17 mg/dL (8-23); Calcium 8.4 mg/dL (8.6-10.3); Carbon Dioxide 31 mEq/L (23-29); Chloride 99 mEq/L (98-107); Glucose 116 mg/dL (70-105); Magnesium 2.1 mg/dL (1.6-2.6); Osmolality,Calculated 293 (280-300); Potassium 2.6 mEq/L (3.5-5.1); Sodium 140 mEq/L (136-145); eGFR For African Americans > 60 (> 60); eGFR For Non-African Americans > 60 (> 60)
[2021-03-05] MEDS: Budesonide/Formoterol 160/4.5 1 PUFF INH IH SCH ×2 (07:15→20:36)
[2021-03-05] MEDS: Apixaban 5 MG TABLET PO SCH ×2 (09:17→20:34)
[2021-03-05] MEDS: Famotidine 20 MG TABLET PO SCH ×2 (09:17→20:34)
[2021-03-05 10:14] LABS: Phosphorous 3.4 mg/dL (2.7-4.5)
[2021-03-05] MEDS: Potassium Chloride Elixir 20 MEQ/15 ML UDC PO SCH (12:14)
[2021-03-05] MEDS ORDERED: levETIRAcetam 500 MG/5 ML UDC GTUBE SCH (21:00)
[2021-03-06 03:30] LABS: Basophils % 0.2 %; Eosinophils % 0.3 %; Hematocrit 39.1 % (37.5-50.1); Immature Granulocytes % 0.7 % (0-4); Lymphocytes # 2.5 K/mcL (0.6-4.6); Lymphocytes % 21.8 %; Mean Corpuscular HGB Conc 33.2 g/dL (31.6-35.5); Mean Corpuscular Hemoglobin 29.4 pg (28.0-33.3); Mean Corpuscular Volume 88.5 fL (83.0-100.0); Mean Platelet Volume 9.5 fL (9.4-12.4); Monocytes # 1.7 K/mcL (0.0-1.3); Monocytes % 15.2 %; Neutrophils # 7.1 K/mcL (1.6-8.9); Platelet Count 293 K/mcL (140-400); Red Blood Count 4.42 M/mcL (4.19-5.50); Red Cell Distribution Width 13.1 % (11.5-14.5); Segmented Neutrophils % 61.8 %; White Blood Count 11.5 K/mcL (4.3-11.1)
[2021-03-06 03:31] LABS: BUN/Creatinine Ratio 20 (6-26); Blood Urea Nitrogen 15 mg/dL (8-23); Calcium 7.7 mg/dL (8.6-10.3); Carbon Dioxide 24 mEq/L (23-29); Chloride 100 mEq/L (98-107); Glucose 96 mg/dL (70-105); Magnesium 2.2 mg/dL (1.6-2.6); Osmolality,Calculated 279 (280-300); Potassium 3.2 mEq/L (3.5-5.1); Sodium 134 mEq/L (136-145); eGFR For African Americans > 60 (> 60); eGFR For Non-African Americans > 60 (> 60)
[2021-03-06 07:00] VITALS: TEMP 98.3
[2021-03-06] MEDS: Potassium Chloride Elixir 20 MEQ/15 ML UDC PO SCH ×3 (07:34→12:59)
[2021-03-06] MEDS: Famotidine 20 MG TABLET PO SCH (08:28)
[2021-03-06] MEDS: Apixaban 5 MG TABLET PO SCH (08:28)
[2021-03-06] MEDS: Budesonide/Formoterol 160/4.5 1 PUFF INH IH SCH (08:41)
[2021-03-06 10:47] VITALS: BP 158/81; PULSE 85; O2SAT 98
== END 2021-03-06 13:20 | disposition home or self-care (01) | DRG 208 ==
LOC: ICNU 09:13 → EMEROOARM 09:13 → ICNU 18:24 → SUATTDRO 18:53 → 3NENU 03-04 13:10
PROVIDERS: ADMIT Pediatrics; ATTEND Internal Medicine